=== PATIENT | male | born 1985 | race Caucasian/White ===

== ENCOUNTER 2020-08-11 09:41 | Emergency (ER) | payer MEDICAID, OTHER ==
[~2020-08-11] VITALS: Ht 182.9 cm; Wt 82.0 kg
[2020-08-11] MEDS ORDERED: KETOROLAC 60MG/2ML VIAL IM ONE (10:00)
[2020-08-11] MEDS ORDERED: DIAZEPAM 5 MG TABLET PO ONE (10:00)
[2020-08-11] MEDS ORDERED: METH-773 MT (11:10)
[2020-08-11] MEDS ORDERED: IBUP-2030 MT (11:10)
[2020-08-11 11:31] VITALS: BP 146/76
== END 2020-08-11 11:30 | disposition home or self-care (01) ==
LOC: ER 09:41
DX: M54.2 Cervicalgia (principal)
CPT/HCPCS: 72125; 96372; 99284; J1885; Z7610